=== PATIENT | female | born 1975 | race Two or more races ===

== ENCOUNTER 2017-07-28 02:58 | Inpatient (IN) | payer BC ==
[~2017-07-28 02:58] MED LIST: Buffered Lidocaine 0.9% SYRIN* 5 ML/SYR SYRINGE INTRADERM ONE
[2017-07-28] MEDS ORDERED: Ondansetron INJ* 2 MG/ML VIAL IV ONE ×2 (06:00)
[2017-07-28] MEDS ORDERED: Sodium Citrate/Citric Acid* 15 ML UDC PO ONE ×2 (06:00)
[2017-07-28] MEDS ORDERED: Famotidine IV* 10 MG/ML 2 ML (20 mg) IV ONE ×2 (06:00)
[2017-07-28] MEDS ORDERED: Acetaminophen TAB* 325 MG PO ONE ×2 (06:00)
[2017-07-28] MEDS ORDERED: ceFAZolin 2 GM PREMIX (*) 2 GM/50 ML BAG IVPB ONE (07:00)
[2017-07-28] MEDS ORDERED: fentaNYL* 50 MCG/ML 2 ML VIAL (100 MCG VIAL) ONE (07:15)
[2017-07-28] MEDS ORDERED: oxyCODONE TAB* 5 MG TAB PO PRN (07:45)
[2017-07-28] MEDS ORDERED: HYDROmorphone INJ* 1 MG/ML CARPUJECT SYRINGE IV PRN (07:45)
[2017-07-28] MEDS ORDERED: PROCHLORPERAZINE INJ 5 MG/ML 2 ML VIAL IV PRN (07:45)
[2017-07-28] MEDS ORDERED: fentaNYL* 50 MCG/ML 2 ML VIAL (100 MCG VIAL) IV PRN (07:45)
[2017-07-28] MEDS ORDERED: oxyCODONE/Acetamin 5/325 MG* TAB PO PRN ×2 (07:45→12:00)
[2017-07-28] MEDS ORDERED: diPHENhydraMINE IV* 50 MG/ML 1 ml VIAL (BENADRYL) IV PRN (07:45)
[2017-07-28] MEDS ORDERED: HYDROcodone/ACETAMIN 5-325 MG* 1 TAB PO PRN (07:45)
[2017-07-28] MEDS ORDERED: Nalbuphine* 20 MG/ML 1 ML VIAL IV PRN (07:45)
[2017-07-28] MEDS ORDERED: Ondansetron INJ* 2 MG/ML VIAL IV PRN (07:45)
[2017-07-28] MEDS ORDERED: DiMENhydriNATE IV* 50 MG/ML VIAL IV PUSH PRN (07:45)
[2017-07-28] MEDS ORDERED: Ketorolac INJ* 30 MG/ML 1 ML VIAL IV SCH (08:00)
[2017-07-28] MEDS ORDERED: Phenylephrine IV* 40 MCG/ML 10 ML SYRINGE ONE (08:35)
[2017-07-28] MEDS ORDERED: Glycerin ADULT SUPP PR PRN (10:17)
[2017-07-28] MEDS ORDERED: Acetaminophen TAB* 325 MG PO PRN (10:17)
[2017-07-28] MEDS ORDERED: Dibucaine 1% 28.35 GM TUBE PR PRN (10:17)
[2017-07-28] MEDS ORDERED: Witch Hazel PAD* JAR TOPICAL PRN (10:17)
[2017-07-28] MEDS ORDERED: Oxytocin in LR* 20 UNITS/1,000 ML BAG IVPB SCH (11:00)
[2017-07-28] MEDS: oxyCODONE/Acetamin 5/325 MG* TAB PO PRN ×2 (12:19→19:10)
[2017-07-28] MEDS: Simethicone TAB* 80 MG TAB.CHEW PO SCH ×3 (12:35→20:47)
--- NOTE | 2017-07-28 14:28 | PTEDU ---
Patient Name: NOAH SHAH NOAH SHAH selected video: Never Ever Shake a Baby to view on 07/28/2017 at 2:27:38 PM from [facility] [id number]
--- NOTE | 2017-07-28 14:38 | PTEDU ---
Patient Name: NOAH SHAH NOAH SHAH selected video: BBOB: Nurturing Your Gorgeous &Growing Baby by to view on 07/28/2017 at 2:37:40 PM [id number]
[2017-07-28] MEDS: Docusate CAP* 100 MG PO SCH ×2 (14:40→20:47)
[2017-07-28] MEDS: Ketorolac INJ* 30 MG/ML 1 ML VIAL IV SCH (16:55)
--- NOTE | 2017-07-28 20:08 | PTEDU ---
Patient Name: NOAH SHAH NAOH SHAH selected video: Follow Me Mum: The Wilson to Successful to view on 2016 at 8:08:18 PM from [id number]
[2017-07-28] MEDS: Famotidine TAB* 20 MG PO SCH (20:47)
--- NOTE | 2017-07-28 21:01 | OP ---
CC: Dr. Sriram Montalvo * DATE OF OPERATION: 07/28/17 - ROOM #[facility]-117 DATE OF : 77 SURGEON: Sarah Licea MD ISOTOPE TECHNICIAN: Dr. Sriram Montalvo. ANESTHESIOLOGIST: Dr. Lashon Nugent. ANESTHESIA: Spinal. PRE-OP DIAGNOSES: Intrauterine at 39-1/7th weeks, prior myomectomy. POST-OP DIAGNOSES: Intrauterine at 39-1/7th weeks, prior myomectomy, delivered. OPERATIVE PROCEDURE: Primary low-transverse section. ESTIMATED BLOOD LOSS: 600 cc. FLUIDS: 1500 cc of crystalloid. URINE OUTPUT: 200 cc of yellow urine. FINDINGS: Revealed a vertex male infant. Apgars 9 at 1 minute and 9 at 5 minutes. Nuchal cord x1. No meconium. Weight was 8 pounds 8 ounces. Placenta manually extracted intact, adherent to the right lateral aspect of the uterus. No evidence of accreta. Intact 3-vessel cord. Placenta, fibroid anteriorly within the myometrium approximately 4 cm size and a fibroid coming off the left frontal area approximately 5 cm size. Normal palpated tubes and ovaries. No evidence of adhesions. DESCRIPTION OF PROCEDURE: The patient was placed in dorsal lithotomy position. Abdomen was prepped and draped in a sterile standard fashion. Anesthesia was tested to appropriate level. The patient was identified with universal protocol for correct position, patient, and procedure. Incision was made with the scalpel 2 fingerbreadths above the pubic symphysis. This was carried down through to the fascia. Fascia was scored in the midline, extended laterally and superiorly using Godoy scissors, sharply and inferiorly with blunt and sharp dissection from the rectus muscle. The peritoneum was then entered bluntly. The peritoneal incision was extended bluntly. Bladder blade was inserted. Lower uterine segment was identified and lifted up with Allis. Incision was made, carried down through to the membranes. Clear fluid was noted. The incision was extended laterally and superiorly using bandage scissors. The infant was delivered vertex. Nuchal cord reduced. Anterior and posterior shoulder delivered. The cord was allowed to pulse for greater than 30 seconds and at which point, the cord was clamped, and the baby was handed off to awaiting cylinder machine operator, Dr. Wells. The baby was vigorous throughout and crying after head delivery. The placenta was then manually extracted and noted to be adherent to the right lateral aspect of the uterus, but did detach with manual extraction. The uterine cavity was explored, noted to be free of any membranes or placental tissue. The fibroids were palpated as described in the findings. The uterine incision was clamped with broad Allis and the incision itself was reapproximated in two layers, first layer running locked, second layer running imbricated for hemostasis. Colic gutters were lavaged and hemostasis was again reassured at the hysterotomy site. The peritoneum was then clamped with Divya. The fundus was then palpated, tubes and ovaries were palpated, noted to have a normal palpation with no evidence of adhesions. The peritoneum was then reapproximated using 3-0 Vicryl in a running fashion. Lavage was performed of the subfascial area. Hemostasis assured and the fascia itself was reapproximated using 0 Vicryl x2 in a running fashion. Subcu was lavaged, hemostasis assured with Bovie coagulation and a subcuticular camper stitch was placed using 3-0 Vicryl in an interrupted fashion x5. The skin was then reapproximated using a 4-0 Monocryl in a subcuticular fashion. All sponge , needle, instrument, and blade counts were correct at the case. The patient tolerated the procedure well and went to recovery room in stable condition. [id number]/[facility] #: [id number] PRIETO
[2017-07-29] MEDS: Ketorolac INJ* 30 MG/ML 1 ML VIAL IV SCH ×2 (00:21→00:30)
[2017-07-29] MEDS ORDERED: Ibuprofen TAB* 600 MG ONE ×2 (00:33→07:37)
[2017-07-29] MEDS: Ibuprofen TAB* 600 MG PO PRN ×4 (00:34→20:31)
[2017-07-29] MEDS: oxyCODONE/Acetamin 5/325 MG* TAB PO PRN ×3 (04:20→18:12)
[2017-07-29] MEDS: Levothyroxine TAB* 125 MCG TAB PO SCH (06:34)
[2017-07-29 08:05] LABS: ABS Basophils 0 10^3/ul (0-0.2); ABS Eosinophils 0.1 10^3/ul (0-0.6); ABS Lymphocytes 1.8 10^3/ul (1.0-4.8); ABS Monocytes 0.4 10^3/ul (0-0.8); ABS Neutrophils 8.8 10^3/ul (1.5-7.7); ABS Nucleated RBC 0 10^3/ul; Hematocrit 30 % (35-47); Hemoglobin 9.9 g/dl (12.0-16.0); Lymphocyte % 16.5 % (25-47); Mean Corpuscular HGB Conc 33 g/dl (31-36); Mean Corpuscular Hemoglobin 26 pg (27-31); Mean Corpuscular Volume 78 fL (80-97); Mean Platelet Volume 7 um3 (7.4-10.4); Nucleated Red Blood Cells % 0; Platelet Count 235 10^3/ul (150-450); Red Blood Count 3.82 10^6/ul (4.0-5.4); Red Cell Distribution Width 16 % (10.5-15); White Blood Count 11.2 10^3/ul (3.5-10.8)
[2017-07-29] MEDS: Famotidine TAB* 20 MG PO SCH ×2 (09:05→20:31)
[2017-07-29] MEDS: Simethicone TAB* 80 MG TAB.CHEW PO SCH ×4 (09:05→20:32)
[2017-07-29] MEDS: Ferrous Gluconate TAB* 324 MG TAB PO SCH ×2 (09:05→20:32)
[2017-07-29] MEDS: Docusate CAP* 100 MG PO SCH ×3 (09:05→20:32)
[2017-07-29] MEDS: PRENATAL DHA PO SCH (15:43)
[2017-07-30] MEDS: Levothyroxine TAB* 125 MCG TAB PO SCH (06:08)
[2017-07-30] MEDS: Ibuprofen TAB* 600 MG PO PRN ×3 (07:32→20:28)
[2017-07-30] MEDS: oxyCODONE/Acetamin 5/325 MG* TAB PO PRN ×2 (07:32→22:18)
[2017-07-30] MEDS: Simethicone TAB* 80 MG TAB.CHEW PO SCH ×4 (08:47→20:29)
[2017-07-30] MEDS: Famotidine TAB* 20 MG PO SCH ×2 (08:47→20:28)
[2017-07-30] MEDS: Docusate CAP* 100 MG PO SCH ×3 (08:47→20:29)
[2017-07-30] MEDS: Ferrous Gluconate TAB* 324 MG TAB PO SCH ×2 (08:47→20:29)
[2017-07-30] MEDS: PRENATAL DHA PO SCH (09:10)
[2017-07-31] MEDS: Ibuprofen TAB* 600 MG PO PRN ×2 (04:26→10:18)
[2017-07-31] MEDS: Levothyroxine TAB* 125 MCG TAB PO SCH (07:12)
[2017-07-31 08:05] VITALS: BP 136/76
[2017-07-31] MEDS: Famotidine TAB* 20 MG PO SCH (08:40)
[2017-07-31] MEDS: Docusate CAP* 100 MG PO SCH (08:41)
[2017-07-31] MEDS: Ferrous Gluconate TAB* 324 MG TAB PO SCH (08:41)
[2017-07-31] MEDS: Simethicone TAB* 80 MG TAB.CHEW PO SCH (08:41)
== END 2017-07-31 13:09 | disposition home or self-care (01) | DRG 540 ==
LOC: UNDOADMIN 02:58 → MCHOB 02:58
PROVIDERS: ADMIT Obstetrics & Gynecology; ATTEND Obstetrics & Gynecology
PROC: 4A1HXCZ Monitoring of Products of Conception, Cardiac Rate, External Approach (ICD-10-PCS; 2017-07-28)
PROC: 10D00Z1 Extraction of Products of Conception, Low, Open Approach (ICD-10-PCS; principal; 2017-07-28 07:45)
DX: O99.214 Obesity complicating childbirth (principal); E66.01 Morbid (severe) obesity due to excess calories; Z68.39 Body mass index [BMI] 39.0-39.9, adult; O34.29 Maternal care due to uterine scar from other previous surgery; Z90.49 Acquired absence of other specified parts of digestive tract; O69.81X0 Labor and delivery complicated by cord around neck, without compression, not applicable or unspecified; Z3A.39 39 weeks gestation of pregnancy; O34.13 Maternal care for benign tumor of corpus uteri, third trimester; D25.9 Leiomyoma of uterus, unspecified; O73.0 Retained placenta without hemorrhage; Z37.0 Single live birth; O99.824 Streptococcus B carrier state complicating childbirth; O90.81 Anemia of the puerperium; O99.284 Endocrine, nutritional and metabolic diseases complicating childbirth; E03.9 Hypothyroidism, unspecified
CPT/HCPCS: 36415; 85025; A9270-GY; J0690; J1885; J3010

== ENCOUNTER 2018-12-25 18:36 | Emergency (ER) | payer BC ==
--- NOTE | 2018-12-25 19:08 | ED ---
HPI Chest Pain - HPI Summary HPI Summary: Pt seen at 1850 in Subwaiting room after EKG performed. 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 Pt rates the pressure and SOB approximately 4-5, both relieved with rest. Pt has no hx asthma. No cardiac risk factors. Never smoked. No personal or family hx of blood clots. Pt also states she was worked up for genetic conditions that cause clotting, and tested negative for these also. Pt states the SOB is worse with exertion, and walking from the hospital parking lot caused severe SOB. Pt has no risk factors for clot such as immobility, malignancy, estrogen, long care ride or smoking. Pt states these symptoms feel somewhat similar to when she was receiving an intralipid infusion and had an allergic reaction with CP, SOB, however she cannot think of any medications that she has taken recently that might have caused an allergic reaction and she has not rash or hives. However, her throat also feels a little tight with the chest pressure. Pt has had no wheezing that she could feel or hear. +Fam hx asthma, DM, HTN , - History of Current Complaint Chief Complaint: EDChestPainROMI Time Seen by Provider: 12/25/18 19:04 Hx Obtained From: Patient Onset/Duration: Started Hours Ago, Atraumatic, Still Present Timing: Constant, Lasting Hours Initial Severity: Moderate Current Severity: Moderate Pain Intensity: 4 Pain Scale Used: 0-10 Numeric Chest Pain Location: Mid Sternal Chest Pain Radiates: No Character: Cough, Non-Productive, Dyspnea at Exertion, Dyspnea at Rest, Pressure /Squeezing Aggravating Factor(s): Nothing Alleviating Factor(s): Nothing Associated Signs and Symptoms: Positive: Chest Pain, Shortness of Breath, Cough - dry, Nonproductive Cough - Risk Factors Pulmonary Embolism Risk Factors: Negative TAD Risk Factors: Negative - Allergy/Home Medications Allergies/Adverse Reactions: Allergies Allergy/AdvReac Type Severity Reaction Status Date / Time fat emulsions Allergy See Comment Verified 12/25/18 18:40 [From Intralipid] PMH/Surg Hx/FS Hx/Imm Hx Endocrine/Hematology History: Reports: Hx Diabetes, Hx Anemia Cardiovascular History: Denies: Hx Congestive Heart Failure, Hx Hypertension, Other Cardiovascular Problems/Disorders Respiratory History: Reports: Hx Pleural Effusion Denies: Hx Asthma GI History: Reports: Hx Gall Bladder Disease - [facility] 2009 History: Reports: Hx Kidney Stones - long time ago Denies: Hx Renal Disease Sensory History: Reports: Hx Contacts or Glasses - glasses Denies: Hx Hearing Aid Opthamlomology History: Reports: Hx Contacts or Glasses - glasses - Cancer History Cancer Type, Location and Year: none - Surgical History Surgery Procedure, Year, and Place: LAP CHO[facility]STECTOMY-[facility], myomectomy December 2013 Hx Anesthesia Reactions: No Infectious Disease History: No Infectious Disease History: Denies: Hx Clostridium Difficile, Hx Hepatitis, Hx Human Immunodeficiency Virus (HIV), Hx of Known/Suspected MRSA, Hx Shingles, Hx Tuberculosis, History Other Infectious Disease, Traveled Outside the [place] in Last 30 Days - Family History Known Family History: Positive: Hypertension, Diabetes, Other - CAD, prostate CA , no hx clotting disorder - Social History Occupation: Employed Full-time Lives: With Family Alcohol Use: None Hx Substance Use: No Substance Use Type: Reports: None Hx Tobacco Use: No Smoking Status (MU): Never Smoked Tobacco Review of Systems Constitutional: Negative ENT: Negative Positive: Chest Pain Positive: Shortness Of Breath, Cough - dry Gastrointestinal: Negative Positive: no symptoms reported Musculoskeletal: Negative Skin: Negative Neurological: Negative Psychological: Normal All Other Systems Reviewed And Are Negative: Yes Physical Exam Triage Information Reviewed: Yes Vital Signs On Initial Exam: Initial Vitals Temp Pulse Resp BP Pulse Ox 98.3 F 113 20 166/110 100 12/25/18 18:37 12/25/18 18:37 12/25/18 18:37 12/25/18 18:37 12/25/18 18:37 Vital Signs Reviewed: Yes Appearance: Positive: Ill-Appearing - moderately, Pain Distress, Obese Skin: Positive: Warm, Skin Color Reflects Adequate Perfusion, Dry Head/Face: Positive: Normal Head/Face Inspection Eyes: Positive: EOMI, Conjunctiva Clear ENT: Positive: Normal ENT inspection, Hearing grossly normal, Pharynx normal, Uvula midline - no swelling Neck: Positive: Supple, Nontender, No Lymphadenopathy, Other: - thyroid nonpalp Respiratory/Lung Sounds: Positive: Decreased Breath Sounds - throughout, Other - dry cough multiple times during the exam, that even interrupts her talking. Cardiovascular: Positive: Normal, RRR, S1, S2 Abdomen Description: Positive: Nontender, Soft Bowel Sounds: Positive: Present Musculoskeletal: Positive: Strength/ROM Intact Neurological: Positive: Normal, Sensory/Motor Intact, Alert, Oriented to Person Place, Time, Facial Symmetry, Speech Normal Psychiatric: Positive: Affect/Mood Appropriate Diagnostics - Vital Signs Vital Signs Temp Pulse Resp BP Pulse Ox 12/25/18 18:37 98.3 F 113 20 166/110 100 - Laboratory Result Diagrams: 12/25/18 19:19 12/25/18 19:19 Lab Statement: Any lab studies that have been ordered have been reviewed, and results considered in the medical decision making process. - EKG 1842 Cardiac Rate: Tachycardia EKG Rhythm: Sinus Tachycardia ST Segment: Normal Ectopy: None EKG Comparison: No Significant Change - c/w 05/26/16 Summary of EKG Findings: ST with no acute changes, no S1Q3T3. Re-Evaluation - Re-Evaluation First Eval Re-Evaluation Time: 20:10 Change: Unchanged Comment: Pt still with chest pressure, and SOB with exertion. Awaiting CTA. 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 No wheezing, no fever. No hx asthma. No hx clotting disorder. No risk factors for blood clots. No risk factor for heart disease. Pt's primary presentation is most consistent with possible respiratory cause, rather than cardiac. Will obtain labs, including d-dimer. However will order the definitive test, the CTA chest with pt's persistent dry cough, and severe SOB at rest and with exertion, with no other obvious cause. Allergic reaction is another possibility however no easily identifiable allergen and no rash, no hives, no itching, no wheezing, only chest pressure and SOB. Pt agrees with the work up. Care is signed out to Dr. Acosta with labs, and CTA pending at change of shift. - Chest Pain Differential Diagnosis/HQI/PQRI: Acute UT, ACS, CHF, Chest Wall, GI Disease, Lower Respiratory Infection, Pulmonary Embolism - Diagnoses Provider Diagnoses: Dyspnea, Cough, Chest pressure Discharge - Sign-Out/Discharge Documenting (check all that apply): Sign-Out Patient Signing out patient TO: Norbert Acosta - 12/25/18 at 1900, pending labs and xray and CTA Patient Received Moderate/Deep Sedation with Procedure: No - Discharge Plan Condition: Stable Disposition: HOME Patient Education Materials: Dyspnea (ED) Referrals: Britni Rajan MD [Primary Care Provider] - 3 Days (if still having trouble) - Billing Disposition and Condition Condition: STABLE Disposition: Home
[2018-12-25 19:29] LABS: ABS Eosinophils 0.3 10^3/ul (0-0.6); ABS Lymphocytes 2.5 10^3/ul (1.0-4.8); ABS Monocytes 0.3 10^3/ul (0-0.8); ABS Neutrophils 5.9 10^3/ul (1.5-7.7); Eosinophil % 2.8 %; Hematocrit 38 % (35-47); Hemoglobin 12.3 g/dL (12.0-16.0); Mean Corpuscular HGB Conc 33 g/dL (31-36); Mean Corpuscular Hemoglobin 25 pg (27-31); Mean Corpuscular Volume 76 fL (80-97); Mean Platelet Volume 6.8 fL (7.4-10.4); Nucleated Red Blood Cells % 0.1; Platelet Count 375 10^3/uL (150-450); Red Blood Count 4.99 10^6 /uL (3.70-4.87); Red Cell Distribution Width 16 % (10.5-15); White Blood Count 9.1 10^3/uL (3.5-10.8)
[2018-12-25 19:38] LABS: Activated Partial Thrombo Time 32.7 seconds (26.0-36.3); INR 0.98 (0.82-1.09)
[2018-12-25 19:41] VITALS: BP 136/80
[2018-12-25 19:46] LABS: ALT 25 U/L (7-52); AST 18 U/L (13-39); Albumin 4.2 g/dL (3.2-5.2); Albumin/Globulin Ratio 1.2 (1-3); Alkaline Phosphatase 135 U/L (34-104); Anion Gap 8 mmol/L (2-11); BUN/Creatinine Ratio 15.3 (8-20); Blood Urea Nitrogen 11 mg/dL (6-24); CO2 Carbon Dioxide 27 mmol/L (22-32); Calcium 9.4 mg/dL (8.6-10.3); Chloride 103 mmol/L (101-111); EGFR African American 107.5 (>60); EGFR Non-African American 88.8 (>60); Globulin 3.5 g/dL (2-4); Glucose 174 mg/dL (70-100); Magnesium 1.9 mg/dL (1.9-2.7); Potassium 3.4 mmol/L (3.5-5.0); Sodium 138 mmol/L (135-145); Total Protein 7.7 g/dL (6.4-8.9)
[2018-12-25] MEDS ORDERED: Iodixanol* (CONTRAST) 320 MG/ML 100 ML SDV IV ONE (19:51)
[2018-12-25 19:54] LABS: HCG Pregnancy < 0.60 mIU/mL
[2018-12-25 20:00] LABS: TSH (Thyroid Stimulating Horm) 4.23 mcIU/mL (0.34-5.60)
--- NOTE | 2018-12-25 20:17 | ED ---
Progress - Progress Note Progress Note: Pt is a signout from Dr. Holguin on 12/25/18 pending CXR, CTA chest, and lab results. - Results/Orders Results/Orders: CTA Chest/Thorax No acute findings. Specifically no pulmonary embolism. ED physician has reviewed this report. Course/Dx - Course Course Of Treatment: Pt is a signout from Dr. Holguin on 12/25/18 pending CXR, CTA chest, and lab results. CTA Chest/Thorax shows: No acute findings. Specifically no pulmonary embolism. She has been stable while in the ED, and reports feeling better. She will be d/c'ed with dx of dyspnea and cough, and she is agreeable with this plan. - Diagnoses Provider Diagnoses: Dyspnea, Cough, Chest pressure Discharge - Sign-Out/Discharge Documenting (check all that apply): Patient Departure, Receiving Sign-Out Receiving patient FROM: Kaley Holguin Patient Received Moderate/Deep Sedation with Procedure: No - Discharge Plan Condition: Stable Disposition: HOME Patient Education Materials: Dyspnea (ED) Referrals: Britni Rajan MD [Primary Care Provider] - 3 Days (if still having trouble) - Billing Disposition and Condition Condition: STABLE Disposition: Home - Attestation Statements Document Initiated by Scribe: Yes Documenting Scribe: Michelle Cornejo Provider For Whom Sofia is Documenting (Include Credential): Norbert Acosta MD. Scribe Attestation: Michelle Romo, clayed for Norbert Acosta MD. on 12/29/18 at 0450. Scribe Documentation Reviewed: Yes Provider Attestation: The documentation as recorded by the Michelle donohue accurately reflects the service I personally performed and the decisions made by , Norbert Acosta MD. Status of Scribe Document: Viewed
== END 2018-12-25 21:37 | disposition home or self-care (01) ==
LOC: ED 18:36
DX: R06.00 Dyspnea, unspecified (principal); R05 Cough; R07.89 Other chest pain; E11.9 Type 2 diabetes mellitus without complications; D64.9 Anemia, unspecified; R00.0 Tachycardia, unspecified
CPT/HCPCS: 36415; 71275; 80053; 83605; 83735; 83880; 84443; 84484; 84702; 85025; 85379; 85610; 85730; 93005; 99282; Q9967

== ENCOUNTER 2018-12-31 14:19 | Emergency (ER) | payer BC ==
--- NOTE | 2018-12-31 14:31 | ED ---
Shortness of Breath - HPI Summary HPI Summary: 43 year old F presenting to [facility] with a chief complaint of worsening shortness of breath since 1100 today. Symptoms aggravated by exertion, movement, sitting upright. Symptoms alleviated by nothing. Patient reports dry cough. Patient denies rash, fever, chest pain, rhinorrhea. Patient denies known exposure to allergens. She does not take any medications. This morning, patient ate biscuit with almonds, which she has eaten before. Patient was seen in ED on 12/25/18, where her Chest CTA was negative. While in ED, patient's SOB improved so she was discharged from ED on 12/25/18. Vital signs while in room: HR 91 bpm, BP 131/97, O2 sat 100% Home Medications Medication Instructions Recorded Confirmed Type NK [No Home Medications Reported] 12/31/18 12/31/18 History - History of Current Complaint Chief Complaint: EDShortnessOfBreath Hx Obtained From: Patient Onset/Duration: Lasting Hours - 11:00 today, Still Present Timing: Constant Aggrevating Factors: Other - exertion, movement, sitting upright Alleviating Factors: Nothing Associated Signs & Symptoms: Negative - rash, fever, chest pain, runny nose., Cough (Nonproductive) - Allergy/Home Medications Allergies/Adverse Reactions: Allergies Allergy/AdvReac Type Severity Reaction Status Date / Time fat emulsions Allergy See Comment Verified 12/31/18 15:02 [From Intralipid] PMH/Surg Hx/FS Hx/Imm Hx Previously Healthy: No Endocrine/Hematology History: Reports: Hx Diabetes, Hx Anemia Cardiovascular History: Denies: Hx Congestive Heart Failure, Hx Hypertension, Other Cardiovascular Problems/Disorders Respiratory History: Reports: Hx Pleural Effusion Denies: Hx Asthma GI History: Reports: Hx Gall Bladder Disease - [facility] 2009 History: Reports: Hx Kidney Stones - long time ago Denies: Hx Renal Disease Sensory History: Reports: Hx Contacts or Glasses - glasses Denies: Hx Hearing Aid Opthamlomology History: Reports: Hx Contacts or Glasses - glasses - Cancer History Cancer Type, Location and Year: none - Surgical History Surgery Procedure, Year, and Place[place] [place] Hx Anesthesia Reactions: No Infectious Disease History: Denies: Hx Clostridium Difficile, Hx Hepatitis, Hx Human Immunodeficiency Virus (HIV), Hx of Known/Suspected MRSA, Hx Shingles, Hx Tuberculosis, History Other Infectious Disease - Family History Known Family History: Positive: Hypertension, Diabetes, Other - CAD, prostate CA , no hx clotting disorder - Social History Alcohol Use: None Hx Substance Use: No Substance Use Type: Reports: None Hx Tobacco Use: No Smoking Status (MU): Never Smoked Tobacco Review of Systems Negative: Fever ENT: Negative - rhinorrhea Negative: Chest Pain Positive: Shortness Of Breath, Cough Negative: Rash All Other Systems Reviewed And Are Negative: Yes Physical Exam - Summary Physical Exam Summary: Appearance: Ill-appearing, no pain distress, well-nourished Skin: Warm, color reflects adequate perfusion, dry Head: Normal Head/Face inspection, atraumatic Eyes: Conjunctiva clear ENT: Normal inspection Neck: Supple, no nodes, no JVD Respiratory: Lungs clear, decreased breath sounds, no respiratory distress, frequent dry cough Cardio: RRR, No murmur, pulses normal, brisk capillary refill Abdomen: Soft, nontender Bowel sounds: Present Musculoskeletal: Strength Intact/ROM intact, no calf tenderness, no edema. Psychological: Normal Neuro: Alert, muscle tone normal, no focal deficit Triage Information Reviewed: Yes Vital Signs Reviewed: Yes Diagnostics - Laboratory Result Diagrams: 12/31/18 14:52 12/31/18 14:52 Lab Statement: Any lab studies that have been ordered have been reviewed, and results considered in the medical decision making process. - Radiology CXR Radiology Interpretation Completed By: Radiologist Summary of Radiographic Findings: NO ACTIVE CARDIOPULMONARY DISEASE. ED physician has reviewed this report. - EKG 1419 Cardiac Rate: NL EKG Rhythm: Sinus Rhythm - [address] Segment: Non-Specific Ectopy: None EKG Comparison: No Significant Change - From 12/25/18 Summary of EKG Findings: Low voltage. Nml AV/IV CT, nml QTc, and nml axis. No acute changes. ED MD has reviewed and interpreted this EKG. - Additional Comments Diagnostic Additional Comments: Transthoracic Echocardiogram, per produce service team member, shows 1. Left ventricle: The cavity size is normal. Wall thickness is mildly increased. The wall thickness has increased since the study of April 2014. Systolic function is vigorous. The estimated ejection fraction is 65-70%. the study of April 2014. Doppler parameters are consistent with abnormal left ventricular relaxation (grade 1 diastolic dysfunction). 2. Right ventricle: The cavity size is mildly dilated. Wall thickness is mildly increased. The wall thickness has increased in comparison with the study of April 2014. Systolic function is mildly reduced. Overall RV function is worse in comparison with the study of April 2014. 3. Left atrium: The atrium is mildly dilated. The left atrium has increased in size since the study of April 2014. 4. Pericardium, extracardiac: A prominent pericardial fat pad is present. A possible, trivial pericardial effusion is identified circumferential to the heart. There is no evidence of hemodynamic compromise. The pericardial effusion has not changed since the study of April 2014. 5. Pulmonary arteries: Systolic pressure can not be accurately estimated. ED physician has reviewed this report. Re-Evaluation - Re-Evaluation First Eval Re-Evaluation Time: 14:32 Change: Unchanged Comment: Dr. Agarwal is examining the patient. Second Eval Re-Evaluation Time: 14:51 Change: Unchanged Comment: Patient is lying on stretcher. Domi, phlebotomy, is drawing blood. Dr. Agarwal is at bedside. Third Eval Re-Evaluation Time: 15:49 Change: Unchanged Comment: Patient is in CXR Fourth Eval Re-Evaluation Time: 16:51 Change: Improved Comment: Patient was given a copy of her scans. Her SOB has improved but she still prefers to sit up. Fifth Eval Re-Evaluation Time: 17:37 Comment: Patient is up and walking Course/Dx - Course Course Of Treatment: Patient medications reviewed this visit. Nurses notes reviewed. Allergies noted. High blood pressure noted. Bloodwork was obtained. Bloodwork was unremarkable. Echocardiogram obtained. EKG showed no change compared to 12/25/18. CXR showed NO ACTIVE CARDIOPULMONARY DISEASE. Dr. Agarwal agrees to consult at 1425. Spoke with Dr. Israel, hospitalist, at 1512, who agrees to admit patient. Spoke with Dr. Agarwal at 1713 will come down to reevaluate patient. Spoke with Dr. Agarwal at 1535 who said that patient can be discharged home. Patient will be discharged home with prescription for some tessalon perles and some Robitussin with codeine that patient was instruted to use as needed. Patient was told to follow up from Dr. Rajan, primary care provider, as soon as possible. She was told that Dr. Agarwal recommended a trial of a PPI medication which patient has at home. Patient was given a copy of her scans. Patient was instructed to return to ED for new or worsening symptoms. Patient understands and is agreeable to discharge plan. - Diagnoses Provider Diagnoses: Cough, Dyspnea - Physician Notifications Discussed Care of Patient With: Roseann Agarwal Time Discussed With Above Provider: 14:25 Instructed by Provider To: Other - Dr. Agarwal agrees to consult. Spoke with Dr. Israel, hospitalist, at 1512, who agrees to admit patient. Spoke with Dr. Agarwal at 1713 will come down to reevaluate patient. Spoke with Dr. Agarwal at 1535 who said that patient can be discharged home. Discharge - Sign-Out/Discharge Documenting (check all that apply): Patient Departure - Discharge Patient Received Moderate/Deep Sedation with Procedure: No - Discharge Plan Condition: Stable Disposition: HOME Prescriptions: Benzonatate CAP* [Tessalon 100 MG CAP*] 100 mg PO TID #30 cap guaiFENesin/CODIEN 100MG-10MG* [Robitussin AC 100Mg-10Mg*] 10 ml PO Q4H PRN # 300 ml MDD 60ml PRN Reason: Cough Patient Education Materials: Acute Cough (ED), Shortness of Breath (ED) Referrals: Britni Rajan MD [Primary Care Provider] - As Soon As Possible Additional Instructions: We have given you a copy of your studies done today. We did not find a definite cause for your symptoms. But Dr. Agarwal recommends a trial of a PPI medication which you have at home. Dr. Holguin also has prescribed some tessalon perles and some Robitussin with codeine that you may use as needed. Return to the emergency department for new or worsening symptoms. - Attestation Statements Document Initiated by Scribe: Yes Documenting Scribe: Denise Gant Provider For Whom Scribe is Documenting (Include Credential): Kaley Holguin MD Scribe Attestation: Denise Romo, scribed for Kaley Holguin MD on 12/31/18 at 9926.
[2018-12-31] MEDS ORDERED: Famotidine IV* 10 MG/ML 2 ML (20 mg) ONE (14:52)
[2018-12-31 15:29] LABS: Activated Partial Thrombo Time 36.7 seconds (26.0-38.0); INR 0.98 (0.82-1.09)
[2018-12-31 15:36] LABS: CKMB ng/mL 1.2 ng/mL (0.6-6.3)
[2018-12-31 15:39] LABS: ALT 31 U/L (7-52); AST 24 U/L (13-39); Albumin 4.3 g/dL (3.2-5.2); Albumin/Globulin Ratio 1.2 (1-3); Alkaline Phosphatase 125 U/L (34-104); Anion Gap 11 mmol/L (2-11); BUN/Creatinine Ratio 17.7 (8-20); Blood Urea Nitrogen 17 mg/dL (6-24); C Reactive Protein 15.17 mg/L (<8.01); CO2 Carbon Dioxide 25 mmol/L (22-32); Calcium 10.2 mg/dL (8.6-10.3); Chloride 100 mmol/L (101-111); Creatine Kinase 93 U/L (10-223); EGFR African American 77.1 (>60); EGFR Non-African American 63.7 (>60); Globulin 3.6 g/dL (2-4); Glucose 93 mg/dL (70-100); HCG Pregnancy < 0.60 mIU/mL; Potassium 3.7 mmol/L (3.5-5.0); Sodium 136 mmol/L (135-145); Total Protein 7.9 g/dL (6.4-8.9)
[2018-12-31 15:49] LABS: ABS Basophils 0.1 10^3/ul (0-0.2); ABS Eosinophils 0.2 10^3/ul (0-0.6); ABS Lymphocytes 2.6 10^3/ul (1.0-4.8); ABS Monocytes 0.5 10^3/ul (0-0.8); ABS Neutrophils 6.2 10^3/ul (1.5-7.7); Eosinophil % 1.7 %; Hematocrit 37 % (35-47); Hemoglobin 12.2 g/dL (12.0-16.0); Mean Corpuscular HGB Conc 33 g/dL (31-36); Mean Corpuscular Hemoglobin 25 pg (27-31); Mean Corpuscular Volume 74 fL (80-97); Mean Platelet Volume 6.9 fL (7.4-10.4); Platelet Count 374 10^3/uL (150-450); Red Blood Count 4.98 10^6 /uL (3.70-4.87); Red Cell Distribution Width 15 % (10.5-15); White Blood Count 9.5 10^3/uL (3.5-10.8)
--- NOTE | 2018-12-31 16:42 | ECHO ---
*[facility]* [place] [address] Fax #: [phone] Transthoracic Echocardiogram Patient: Olson, Height: 67 in / Griselda Mendez 170.2 cm : 1975 Weight: 307 lb / Study Date: 12/31/2018 139.5 kg Age: 43 BP: 131 / 97 Gender: F BMI/BSA: 48.2 HR: 90 bpm kg/m^2 / 2.65 m^2 *Suit Attendant: * Yary Hewitt [facility] *Referring Physician: * Kaley HolguinReading Physician: * Jhonatan Clayton MD Indications: SOB. History: Risk factors: Diabetes mellitus. Obese. Pleural effusion. Conclusions Summary: 1. Left ventricle: The cavity size is normal. Wall thickness is mildly increased. The wall thickness has increased since the study of April 2014. Systolic function is vigorous. The estimated ejection fraction is 65-70%. the study of April 2014. Doppler parameters are consistent with abnormal left ventricular relaxation (grade 1 diastolic dysfunction). 2. Right ventricle: The cavity size is mildly dilated. Wall thickness is mildly increased. The wall thickness has increased in comparison with the study of April 2014. Systolic function is mildly reduced. Overall RV function is worse in comparison with the study of April 2014. 3. Left atrium: The atrium is mildly dilated. The left atrium has increased in size since the study of April 2014. 4. Pericardium, extracardiac: A prominent pericardial fat pad is present. A possible, trivial pericardial effusion is identified circumferential to the heart. There is no evidence of hemodynamic compromise. The pericardial effusion has not changed since the study of April 2014. 5. Pulmonary arteries: Systolic pressure can not be accurately estimated. Study data: Transthoracic echocardiogram. Procedure: Transthoracic echocardiography was performed. Image quality was poor. The study was technically limited due to poor acoustic window availability and body habitus. Patient refused echocardiogram enhancement agent Definity due to possible allergy. Complete 2D, spectral Doppler, and color flow Doppler. Location: Emergency department. Patient status: Inpatient. Patient room number: ED-19. The previous study was not available, so comparison is made to the report of April 2014. Rhythm: Normal sinus rhythm. Findings Left ventricle: The cavity size is normal. Wall thickness is mildly increased. The wall thickness has increased since the study of April 2014. Hypertrophy has increased from the study of April 2014. Systolic function is vigorous. The estimated ejection fraction is 65-70%. the study of April 2014. Wall motion is normal; there are no regional wall motion abnormalities. Doppler parameters are consistent with abnormal left ventricular relaxation (grade 1 diastolic dysfunction). Diastolic function abnormalities have appeared since the study of April 2014. Right ventricle: Not well visualized. The cavity size is mildly dilated. Wall thickness is mildly increased. The wall thickness has increased in comparison with the study of April 2014. Systolic function is mildly reduced. Overall RV function is worse in comparison with the study of April 2014. Left atrium: The atrium is mildly dilated. The left atrium has increased in size since the study of April 2014. Right atrium: The atrium is normal in size. Mitral valve: The annulus is mildly calcified. The leaflets are normal thickness. There is no evidence of stenosis. There is trace regurgitation. Aortic valve: Not well visualized. The valve is trileaflet. The leaflets are normal thickness. There is no evidence of stenosis. There is no significant regurgitation. Tricuspid valve: The leaflets are normal thickness. There is no evidence of stenosis. There is physiologic regurgitation. Pulmonic valve: Not well visualized. Aorta: Ascending aorta: The ascending aorta is appears normal. Aortic arch: The aortic arch is appears normal. The aortic root is not dilated. Pericardium: A prominent pericardial fat pad is present. A possible, trivial pericardial effusion is identified circumferential to the heart. There is no evidence of hemodynamic compromise. The pericardial effusion has not changed since the study of April 2014. Pulmonary arteries: The main pulmonary artery is normal-sized. Systolic pressure can not be accurately estimated. Systemic veins: Inferior vena cava: The respirophasic diameter changes are blunted (< 50%). Measurements Left ventricle Value Ref Right atrium continued Value Ref ALLA, LAX 3.8 cm 3.8 - 5.2 ML dim, ES, A4C (H) 5.1 cm 2.6 - ESD, LAX 2.4 cm 2.2 - 3.5 4.4 FS, LAX 38 % 27 - 45 SI dim, ES, A4C (H) 6.2 cm 3.4 - PW, ED, LAX (H) 1.2 cm 0.6 - 0.9 5.3 FS 38 % 27 - 45 SI dim/bsa, ES, 2.3 cm/m^2 1.9 - PW, ED (H) 1.2 cm 0.6 - 0.9 A4C 3.1 E', lat juan alberto, TDI (L) 9.5 cm/sec >=10.0 Estimated RAP 8 mm Hg - ------- E/e', lat juan alberto, 8 TDI Aortic valve Value Ref E', med juan alberto, TDI 11.4 cm/sec >=7.0 Juan Alberto diam, ED 1.9 cm - ------- E/e', med juan alberto, 6 Peak v, S 1.37 m/sec ---- ---- TDI VTI, S 26.9 cm -------- E', avg, TDI 10.5 cm/sec Mean grad, S 3.0 mm Hg ---- ---- E/e', avg, TDI 7 <=14 Peak grad, S 8.0 mm Hg - ------- LVOT/AV, VTI ratio 0.67 -------- LVOT Value Ref Peak chioma, S 1.09 m/sec Mitral valve Value Ref VTI, S 18.0 cm Peak E 0.72 m/sec -------- Mean grad, S 2 mm Hg Peak A 0.59 m/sec -------- Decel time 194 ms -------- Ventricular septum Value Ref Peak grad, D 2.1 mm Hg -------- IVS, ED (H) 1.1 cm 0.6 - 0.9 Peak E/A ratio 1.2 -------- Right ventricle Value Ref Pulmonic valve Value Ref AW thickness, ED 0.4 cm 0.1 - 0.5 Peak v, S 1.16 m/sec -------- ALLA, LAX 3.2 cm Peak grad, S 5.0 mm Hg -------- ALLA minor ax, (H) 4.6 cm 1.9 - 3.5 A4C mid Aortic root Value Ref Root diam 3.0 cm <4.6 Left atrium Value Ref AP dim, ES 3.10 cm 2.70 - Ascending aorta Value Ref 3.80 AAo AP diam, S 2.8 cm -------- ML dim, A4C 4.6 cm SI dim, A4C 6.1 cm Decending aorta Value Ref Vol/bsa, ES, 1-p 16 ml/m^2 11 - 40 Alexander peak chioma 1.05 m/sec -------- A4C Vol/bsa, ES, A/L 20 ml/m^2 16 - 34 Inferior vena cava Value Ref Diam 2.1 cm -------- Right atrium Value Ref SI dim, ES (H) 6.2 cm 3.4 - 5.3 Legend: (L) and (H) estefania values outside specified reference range. Prepared and electronically signed by Jhonatan Clayton MD 12/31/2018 16:41
[2018-12-31 18:06] VITALS: BP 134/108
== END 2018-12-31 18:06 | disposition home or self-care (01) ==
LOC: ED 14:19
DX: R06.00 Dyspnea, unspecified (principal); R05 Cough; R06.02 Shortness of breath; E11.9 Type 2 diabetes mellitus without complications; Z87.442 Personal history of urinary calculi
CPT/HCPCS: 36415; 71046; 80053; 82550; 82553; 83605; 83880; 84484; 84702; 85025; 85379; 85610; 85730; 86140; 93005; 93306; 99283

== ENCOUNTER 2019-01-02 10:02 | Emergency (ER) | payer BC ==
--- NOTE | 2019-01-01 14:45 | CONS ---
PULMONARY CONSULTATION REPORT: DATE OF CONSULT: 12/31/18 CONSULTATION REQUESTED BY: Kaley Holguin MD REASON FOR CONSULTATION: Evaluation of shortness of breath. 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 on the day of presentation. She was of normal self other than having dry cough and tickle in the back of the throat. She had difficulty getting enough air and felt restricted in her chest, worsened with exertion, movement or lying down. Shortness of breath persisted even at rest. She was brought into the ED for further evaluation. The patient had similar symptom a few days back, was seen in ED on 12/25/18. She had essentially negative workup and was discharged from the ED. The patient reports no change in diet recently. She did not feel flushed. Denied any rash. The last episode happened while she was sleeping and she woke up from it. Denies fevers, chills, cold-like symptoms. Cough is essentially nonproductive. The patient was noted to have slight tachycardia with heart rate of 91 beats per minute, blood pressure was 131/97, O2 sat was 100% on room air. She was not using accessory muscles of respiration. PAST MEDICAL HISTORY: 1. Ovarian hyperstimulation syndrome. 2. History of kidney stones. 3. History of gestational diabetes. 4. History of low thyroid during . 5. History of mild anemia. 6. History of pleural effusion on the right side secondary to ovarian hyperstimulation syndrome. 7. History of gallstone, status post cholecystectomy in 2009. 8. History of myomectomy in December of 2013. FAMILY HISTORY: Hypertension, diabetes, coronary artery disease, prostate CA. SOCIAL HISTORY: No alcohol or drug abuse. The patient is a nonsmoker. She is a physician at [employer] [place] REVIEW OF SYSTEMS: All 14 systems reviewed and as per HPI. PHYSICAL EXAM: Obese body habitus, in mild distress upon presentation to the ED ; however, not using any accessory muscles. The patient appeared uncomfortable. HEENT: Pupils equal, reactive to light. Mucous membranes moist. Mallampati class 3 airway. Neck: Supple. Possible thyroid swelling. Respiratory: Good air entry bilaterally. No crackles, wheezes, or stridor. Cardiovascular: S1, S2 present, regular. No murmurs, gallops, or rubs. Abdomen: Soft, nontender, nondistended. Bowel sounds present. Musculoskeletal : Normal range of motion. No edema. Neuro: Alert, awake, and oriented x3. No focal deficits. Skin: No rash or bruises. DIAGNOSTIC STUDIES/LAB DATA: Showed WBC count of 9.5, hemoglobin 12.2, hematocrit 37, platelet count of 374, no evidence of left shift. D-dimer was less than 200. Sodium 136, potassium 3.7, chloride 100, bicarb 25. BUN 17, creatinine 0.96. Lactic acid within normal limits. Alk phos mildly elevated at 125. CRP is slightly elevated at 15. BNP within normal limits. test was negative. BNP recently tested was negative. Chest x-ray was personally reviewed - no obvious airspace opacities. No evidence of hyperinflation. CTA from 12/25/18, was personally reviewed by me - no evidence of filling defects in pulmonary arteries, no parenchymal abnormalities noted. Echocardiogram showed evidence of normal ejection fraction with mildly increased wall thickness, which is slightly increased since April of 2014, evidence of mild diastolic dysfunction. Also, with evidence of increased wall thickness in the right ventricle. Systolic function is mildly reduced and overall RV function is worse compared to 2014. Prominent pericardial fat with trivial pericardial effusion. These noted with no change comparison to prior echo. 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 Further investigations did not reveal any obvious pathology. Unclear symptoms of shortness of breath. Concern with possible gastroesophageal reflux disease even though she has not experienced any significant noticeable symptoms. Anaphylaxis is in the differential; however, no stridor or other findings consistent with that were noted. Evidence of diastolic dysfunction on echocardiogram and slightly thickened ventricles compared to prior echo from 2013; however, symptoms were not happening when she was exerting, unclear if cardiac etiology is to be considered. Troponins were within normal limits. One of the episodes happened and woke her up from sleep, so less likely to be from coronary blockage. Will need, however, further evaluation for possible coronary artery disease if her symptoms continue. Above recommendations were discussed with Dr. Kaley Holguin and with Dr. Min. Thank you for allowing me to participate in the care of the patient. [id number]/[facility] #: [id number] [facility]
--- NOTE | 2019-01-02 10:13 | ED ---
Shortness of Breath - HPI Summary HPI Summary: This patient is a 43 year old F presenting to [facility] with a chief complaint of intermittent SOB and chest tightness since 12/25/18 worsening today with throat tightness. Patient has had two previous workups for similar symptoms with multiple bloodwork, Chest CTA, and Echo, which were all normal. Since 12/25/18 patient has had a dry cough with intermittent SOB; she was given omeprazole as reflux was the suspected cause of her symptoms. Her symptoms improved temporarily, but returned on 12/31/18 that has been unresolved with Robitussim with Codeine. Today she feels like she cannot get a deep breath and feels tightness in her throat. She denies wheezing and difficulty swallowing. Denies new medications other than the previously mentioned. - History of Current Complaint Chief Complaint: EDShortnessOfBreath Hx Obtained From: Patient Onset/Duration: Lasting Weeks Alleviating Factors: Nothing Associated Signs & Symptoms: Cough (Nonproductive) Related History: Similar Episode - Allergy/Home Medications Allergies/Adverse Reactions: Allergies Allergy/AdvReac Type Severity Reaction Status Date / Time fat emulsions Allergy See Comment Verified 01/02/19 10:22 [From Intralipid] PMH/Surg Hx/FS Hx/Imm Hx Endocrine/Hematology History: Reports: Hx Diabetes, Hx Anemia Cardiovascular History: Denies: Hx Congestive Heart Failure, Hx Hypertension, Other Cardiovascular Problems/Disorders Respiratory History: Reports: Hx Pleural Effusion Denies: Hx Asthma GI History: Reports: Hx Gall Bladder Disease - [facility] 2009 History: Reports: Hx Kidney Stones - long time ago Denies: Hx Renal Disease Sensory History: Reports: Hx Contacts or Glasses - glasses Denies: Hx Hearing Aid Opthamlomology History: Reports: Hx Contacts or Glasses - glasses - Cancer History Cancer Type, Location and Year: none - Surgical History Surgery Procedure, Year, and Place: LAP CHOLECYSTECTOMY-[facility] [place], myomectomy December 2013 Hx Anesthesia Reactions: No Infectious Disease History: No Infectious Disease History: Denies: Hx Clostridium Difficile, Hx Hepatitis, Hx Human Immunodeficiency Virus (HIV), Hx of Known/Suspected MRSA, Hx Shingles, Hx Tuberculosis, History Other Infectious Disease, Traveled Outside the [place] in Last 30 Days - Family History Known Family History: Positive: Hypertension, Diabetes, Other - CAD, prostate CA , no hx clotting disorder - Social History Alcohol Use: None Hx Substance Use: No Substance Use Type: Reports: None Hx Tobacco Use: No Smoking Status (MU): Never Smoked Tobacco Review of Systems Positive: Other - throat tightness Positive: Shortness Of Breath, Cough All Other Systems Reviewed And Are Negative: Yes Physical Exam - Summary Physical Exam Summary: VITAL SIGNS: Reviewed. GENERAL: Patient is an obese female who is lying comfortable in the stretcher. Patient is not in any acute respiratory distress. HEAD AND FACE: No signs of trauma. No ecchymosis, hematomas or skull depressions. No sinus tenderness. EYES: PERRLA, EOMI x 2, No injected conjunctiva, no nystagmus. EARS: Hearing grossly intact. Ear canals and tympanic membranes are within normal limits. MOUTH: Oropharynx within normal limits. NECK: Supple, trachea is midline, no adenopathy, no JVD, no carotid bruit, no c- spine tenderness, neck with full ROM. CHEST: Symmetric, no tenderness at palpation LUNGS: Clear to auscultation bilaterally. No wheezing or crackles. CVS: Regular rate and rhythm, S1 and S2 present, no murmurs or gallops appreciated. ABDOMEN: Soft, non-tender. No signs of distention. No rebound no guarding, and no masses palpated. Bowel sounds are normal. EXTREMITIES: FROM in all major joints, no edema, no cyanosis or clubbing. NEURO: Alert and oriented x 3. No acute neurological deficits. Speech is normal and follows commands. SKIN: Dry and warm. Triage Information Reviewed: Yes Vital Signs On Initial Exam: Initial Vitals Temp Pulse Resp BP Pulse Ox 97.8 F 86 24 138/101 96 01/02/19 10:03 01/02/19 10:03 01/02/19 10:03 01/02/19 10:03 01/02/19 10:03 Vital Signs Reviewed: Yes Diagnostics - Vital Signs Vital Signs Temp Pulse Resp BP Pulse Ox 01/02/19 10:03 97.8 F 86 24 138/101 96 - Laboratory Result Diagrams: 01/02/19 10:48 01/02/19 10:48 Lab Statement: Any lab studies that have been ordered have been reviewed, and results considered in the medical decision making process. - Radiology CXR Radiology Interpretation Completed By: Radiologist Summary of Radiographic Findings: No radiographic evidence of acute cardiopulmonary disease. ED Physician has reviewed this report. - CT Neck CT CT Interpretation Completed By: Radiologist Summary of CT Findings: 1. Normal soft tissue CT of the neck. 2. Mild degenerative disc disease of the lower cervical and upper thoracic spine. ED Physician has reviewed this report. - EKG 1021 Cardiac Rate: NL - 84 BPM EKG Rhythm: Sinus Rhythm EKG Comparison: No Significant Change - 12/31/18 Summary of EKG Findings: No ST elevations. nml axis. Re-Evaluation - Re-Evaluation 1 Re-Evaluation Time: 13:10 Course/Dx - Course Course Of Treatment: This patient is a 43 year old F presenting to [facility] with a chief complaint of intermittent SOB and chest tightness since 12/25/18 worsening today with throat tightness. Patient has had two previous workups for similar symptoms with multiple bloodwork, Chest CTA, and Echo, which were all normal. Since 12/25/18 patient has had a dry cough with intermittent SOB; she was given omeprazole as reflux was the suspected cause of her symptoms. Her symptoms improved temporarily, but returned on 12/31/18 that has been resolved with Robitussin with Codeine. Today she feels like she cannot get a deep breath and feels tightness in her throat. She denies wheezing and difficulty swallowing. Denies new medications other than the previously mentioned. Past Medical History for: 1- Ovarian hyperstimulation syndrome. 2- Kidney stones. 3- Gestational diabetes. 4- Low thyroid 20 . 5- Mild anemia. 6- Pleural effusion secondary to ovarian hyperstimulation syndrome. 7_ Gallstones status post cholecystectomy 2009. 8- Myomectomy in December 2013. Patient reports that shes been having multiple episodes of shortness of breath. This dry cough. Today she feels like she is having something obstructing in the left side of the neck. Patient had a CTA of the chest on 12/25/18: which shows no acute findings. And no pulmonary embolism. Echocardiogram done on 12/31/18: Normal echocardiogram. Blood work without any significant abnormality except for sodium 134, chloride 97, anion gap is 12, alkaline phosphatase is 129 and CRP is 21.9. I discussed the case with Dr. Lopez ENT and he recommends a neck CT with IV contrast. Neck CT impression: Normal soft tissue CT of the neck. Mind and degenerative disc disease of the lower cervical and upper thoracic spine. I discussed the case with Dr. Lopez who recommends an scope as outpatient. At this time I also discussed the case with Dr. Rausch from pulmonology who recommends only to follow up as an outpatient. I discussed my physical exam findings, test results with the patient and I will order an albuterol pump, Flonase and Maria Ines to see if the symptoms improved. The patient understands and agrees. At this time she was advised to return to the emergency department if the symptoms worsen. She also understands and agrees. - Diagnoses Provider Diagnoses: Dyspnea, Cough - Physician Notifications Discussed Care of Patient With: Wilberto Lopez - ENT Time Discussed With Above Provider: 10:45 Instructed by Provider To: Other - suggests CT Neck with contrast Discharge - Sign-Out/Discharge Documenting (check all that apply): Patient Departure - discharge Patient Received Moderate/Deep Sedation with Procedure: No - Discharge Plan Condition: Stable Disposition: HOME Prescriptions: Fexofenadine (NF) [Maria Ines 180 (NF)] 180 mg PO DAILY #30 tab Fluticasone NASAL SPRAY 50MCG* [Flonase NASAL SPRAY 50MCG*] 2 spray BOTH NARES DAILY #1 btl Patient Education Materials: Chronic Cough (ED), Dyspnea (ED) Referrals: Britni Rajan MD [Primary Care Provider] - 2 Days Additional Instructions: RETURN TO THE EMERGENCY DEPARTMENT FOR CHANGING OR WORSENING SYMPTOMS. - Billing Disposition and Condition Condition: STABLE Disposition: Home - Attestation Statements Document Initiated by Sofia: Yes Documenting Scribe: Judy Simmons Provider For Whom Sofia is Documenting (Include Credential): Indra Whyte MD Scribe Attestation: I, Judy Simmons, scribed for Indra Whyte MD on 01/02/19 at 1517. Scribe Documentation Reviewed: Yes Provider Attestation: The documentation as recorded by the Judy donohue accurately reflects the service I personally performed and the decisions made by me, Indra Whyte MD Status of Scribe Document: Viewed
[2019-01-02 11:19] LABS: ABS Eosinophils 0.2 10^3/ul (0-0.6); ABS Lymphocytes 2.2 10^3/ul (1.0-4.8); ABS Monocytes 0.3 10^3/ul (0-0.8); ABS Neutrophils 6.3 10^3/ul (1.5-7.7); Eosinophil % 1.9 %; Hematocrit 38 % (35-47); Hemoglobin 12.5 g/dL (12.0-16.0); Lymphocyte % 23.8 %; Mean Corpuscular HGB Conc 33 g/dL (31-36); Mean Corpuscular Hemoglobin 25 pg (27-31); Mean Corpuscular Volume 75 fL (80-97); Mean Platelet Volume 7.1 fL (7.4-10.4); Platelet Count 353 10^3/uL (150-450); Red Blood Count 5.11 10^6 /uL (3.70-4.87); Red Cell Distribution Width 16 % (10.5-15); White Blood Count 9.1 10^3/uL (3.5-10.8)
[2019-01-02 11:37] LABS: ALT 32 U/L (7-52); AST 26 U/L (13-39); Albumin 4.4 g/dL (3.2-5.2); Albumin/Globulin Ratio 1.2 (1-3); Alkaline Phosphatase 129 U/L (34-104); Anion Gap 12 mmol/L (2-11); BUN/Creatinine Ratio 18.3 (8-20); Blood Urea Nitrogen 13 mg/dL (6-24); C Reactive Protein 21.93 mg/L (<8.01); CO2 Carbon Dioxide 25 mmol/L (22-32); Calcium 9.7 mg/dL (8.6-10.3); Chloride 97 mmol/L (101-111); Creatine Kinase 95 U/L (10-223); EGFR African American 109.2 (>60); EGFR Non-African American 90.3 (>60); Globulin 3.8 g/dL (2-4); Glucose 77 mg/dL (70-100); Potassium 3.7 mmol/L (3.5-5.0); Sodium 134 mmol/L (135-145); Total Protein 8.2 g/dL (6.4-8.9)
[2019-01-02 11:40] LABS: CKMB ng/mL 1.2 ng/mL (0.6-6.3)
[2019-01-02 11:42] LABS: HCG Pregnancy < 0.60 mIU/mL
[2019-01-02] MEDS ORDERED: Iodixanol* (CONTRAST) 320 MG/ML 100 ML SDV IV ONE (11:42)
[2019-01-02] MEDS ORDERED: Albuterol HFA INHALER* 8 gm MDI INH ONE (13:49)
[2019-01-02 14:08] VITALS: BP 143/85
== END 2019-01-02 14:23 | disposition home or self-care (01) ==
LOC: ED 10:02
DX: R06.00 Dyspnea, unspecified (principal); R05 Cough; R07.89 Other chest pain; M50.30 Other cervical disc degeneration, unspecified cervical region; M51.34 Other intervertebral disc degeneration, thoracic region
CPT/HCPCS: 36415; 70491; 71046; 80053; 82550; 82553; 83605; 83880; 84484; 84702; 85025; 85379; 86140; 87040; 93005; 99283; A9270-GY; Q9967

== ENCOUNTER 2019-09-22 07:28 | Emergency (ER) | payer BC ==
--- NOTE | 2019-09-22 07:46 | ED ---
HPI Chest Pain - HPI Summary HPI Summary: Patient is a 44 y/o F presenting to the ED for a chief complaint of right anterior chest pain that began the night of 09/21/19. Patient rates the chest pain as a 3/10 in severity. She describes the chest pain as being pleuritic. Patient states she had similar chest pain in the past with 2 pleural effusions. Patient states that she has had cold symptoms for the last 2 weeks. Patient admits chills one week ago that has since resolved. She denies fever. She has positive sick contact with her son who had similar cold symptoms. No aggravating or alleviating factors are noted. Patient notes she was seen by her continuous improvement specialist who prescribed her steroids and changed her inhaler. On 09/21/19, patient's symptoms persisted, so her PCP prescribed azithromycin, which she was unable to fill because her pharmacy was closed. PMHx is significant for asthma and sleep apnea, but she denies blood clots, HLD, HTN, or cardiac problems. In December 2018, she had a cardiac workup with a cardiac stress test with unremarkable findings. At that time, she was diagnosed with asthma. FMHx of blood clots is denied. - History of Current Complaint Chief Complaint: EDChestPainROMI Time Seen by Provider: 09/22/19 07:29 Hx Obtained From: Patient Onset/Duration: Still Present Timing: Constant Initial Severity: Mild Current Severity: Mild Pain Intensity: 3 Pain Scale Used: 0-10 Numeric Chest Pain Location: Right Anterior Chest Pain Radiates: No Character: Other: - Pleuritic Aggravating Factor(s): Nothing Alleviating Factor(s): Nothing Associated Signs and Symptoms: Positive: Chest Pain - Right anterior, Chills. Negative: Fever - Allergy/Home Medications Allergies/Adverse Reactions: Allergies Allergy/AdvReac Type Severity Reaction Status Date / Time fat emulsions Allergy See Comment Verified 09/22/19 07:35 [From Intralipid] Home Medications: Home Medications Albuterol HFA INHALER* [Ventolin HFA Inhaler*] 2 puff INH Q4H PRN 01/24/19 [ History Confirmed 09/22/19] Mometasone/Formoter 100/5 MDI* [Dulera 100/5 MDI*] 1 puff INH BID 09/22/19 [ History Confirmed 09/22/19] Montelukast Sodium TAB* [Singulair TAB*] 10 mg PO DAILY 09/22/19 [History Confirmed 09/22/19] predniSONE 10 mg TAB [Deltasone 10 MG TAB*] 20 mg PO DAILY 09/22/19 [History Confirmed 09/22/19] PMH/Surg Hx/FS Hx/Imm Hx Previously Healthy: Yes Endocrine/Hematology History: Denies: Hx Diabetes, Hx Anemia Cardiovascular History: Denies: Hx Angina, Hx Congestive Heart Failure, Hx Coronary Artery Disease, Hx Hypercholesterolemia, Hx Hypertension, Other Cardiovascular Problems/ Disorders Respiratory History: Reports: Hx Asthma, Hx Pleural Effusion Denies: Hx Chronic Obstructive Pulmonary Disease (COPD) GI History: Reports: Hx Gall Bladder Disease - mitchel 2009 Denies: Hx Jaundice History: Reports: Hx Kidney Stones - long time ago Denies: Hx Chronic Renal Failure, Hx Renal Disease Sensory History: Reports: Hx Contacts or Glasses - glasses Denies: Hx Legally Blind, Hx Deafness, Hx Hearing Aid Opthamlomology History: Reports: Hx Contacts or Glasses - glasses Denies: Hx Legally Blind EENT History: Denies: Hx Deafness - Cancer History Cancer Type, Location and Year: none - Surgical History Surgical History: Yes Surgery Procedure, Year, and Place: [facility]OMY-[facility] [place], myomectomy December 2013 Hx Anesthesia Reactions: No Infectious Disease History: No Infectious Disease History: Denies: Hx Clostridium Difficile, Hx Hepatitis, Hx Human Immunodeficiency Virus (HIV), Hx of Known/Suspected MRSA, Hx Shingles, Hx Tuberculosis, History Other Infectious Disease, Traveled Outside the [place] in Last 30 Days - Family History Known Family History: Positive: Hypertension, Diabetes, Other - CAD, prostate CA , no hx clotting disorder - Social History Occupation: Employed Full-time Lives: With Family Alcohol Use: None Hx Substance Use: No Substance Use Type: Reports: None Hx Tobacco Use: No Smoking Status (MU): Never Smoked Tobacco Review of Systems Positive: Chills. Negative: Fever Positive: Chest Pain - Right anterior All Other Systems Reviewed And Are Negative: Yes Physical Exam - Summary Physical Exam Summary: Constitutional: Well-developed, Well-nourished, Alert. (-) Distressed Skin: Warm, Dry HENT: Normocephalic; Atraumatic. Hoarse voice. Eyes: Conjunctiva normal Neck: Musculoskeletal ROM normal neck. (-) JVD, (-) Stridor, (-) Nuchal rigidity Cardio: Rhythm regular, rate normal, Heart sounds normal; Intact distal pulses; Radial pulses are 2+ and symmetric. (-) Murmur Pulmonary/Chest wall: Effort normal. (-) Respiratory distress, (-) Wheezes, (-) Rales Abd: Soft, (-) tenderness, (-) Distension, (-) Guarding, (-) Rebound Musculoskeletal: (-) Edema Lymph: (-) Cervical adenopathy Neuro: Alert, Oriented x3 Psych: Mood and affect Normal Triage Information Reviewed: Yes Vital Signs On Initial Exam: Initial Vitals Temp Pulse Resp BP Pulse Ox 97.4 F 72 18 156/88 100 09/22/19 07:29 09/22/19 07:29 09/22/19 07:29 09/22/19 07:29 09/22/19 07:29 Vital Signs Reviewed: Yes Procedures - Sedation Patient Received Moderate/Deep Sedation with Procedure: No Diagnostics - Vital Signs Vital Signs Temp Pulse Resp BP Pulse Ox 09/22/19 07:29 97.4 F 72 18 156/88 100 - Laboratory Result Diagrams: 09/22/19 07:45 09/22/19 07:45 Lab Statement: Any lab studies that have been ordered have been reviewed, and results considered in the medical decision making process. - Radiology Chest X-ray Radiology Interpretation Completed By: Radiologist Summary of Radiographic Findings: Chest X-ray IMPRESSION: NO ACTIVE CARDIOPULMONARY DISEASE. Reviewed by Dr. Rowland. - EKG 07:31 Cardiac Rate: NL - 79 BPM EKG Rhythm: Sinus Rhythm ST Segment: Normal Ectopy: None Summary of EKG Findings: An EKG at 07:31 reveals normal sinus rhythm with 79 BPM , nml axis, nml intervals. No STEMI. No acute changes. ED physician has reviewed and interpreted this EKG. Re-Evaluation - Re-Evaluation First Eval Re-Evaluation Time: 08:45 Change: Improved - updated patient on neg results, XR. Feeling better. Chest Pain Course/Dx - Course Course Of Treatment: 44 y/o F w h asthma p/w R sided pleuritic CP. - VSS NAD. PE Lungs CTAB, easy WOB on RA. CXR w/o PTX, consolidation or effusion. Labs w/o leukocytosis. Trop negative, heart score 1, Low risk. Perc negative. - patiet already on steroids, has azithromycin at pharmacy. Will f/u with pulmonology. - Diagnoses Provider Diagnoses: Pleuritic chest pain Discharge ED - Sign-Out/Discharge Documenting (check all that apply): Patient Departure - Discharge - Discharge Plan Condition: Stable Disposition: HOME Patient Education Materials: Pleurisy (ED) Referrals: Britni Rajan MD [Primary Care Provider] - Additional Instructions: You were seen in the emergency department for pleuritic chest pain. Your EKG was normal. Your labs did not show any evidence of acute infection. Your chest x -ray did not show any pleural effusions. Please follow up with your primary care doctor in next 2-3 days and return to emergency department for worsening chest pain, trouble breathing, passing out, or concerning symptoms. It was a pleasure taking care of you today. - Billing Disposition and Condition Condition: STABLE Disposition: Home - Attestation Statements Document Initiated by Sofia: Yes Documenting Scribe: Sharon Jacobs Provider For Whom Sofia is Documenting (Include Credential): Marita Rowland MD Scribe Attestation: I, Sharon Jacobs, scribed for Marita Rowland MD on 09/22/19 at 0905. Scribe Documentation Reviewed: Yes Provider Attestation: The documentation as recorded by the Sharon donohue accurately reflects the service I personally performed and the decisions made by me, Marita Rowland MD Status of Scribe Document: Viewed
[2019-09-22 08:05] LABS: INR 0.92 (0.82-1.09)
[2019-09-22 08:10] LABS: Hematocrit 34 % (35-47); Hemoglobin 11.3 g/dL (12.0-16.0); Mean Corpuscular HGB Conc 33 g/dL (31-36); Mean Corpuscular Hemoglobin 24 pg (27-31); Mean Corpuscular Volume 72 fL (80-97); Mean Platelet Volume 6.9 fL (7.4-10.4); Platelet Count 389 10^3/uL (150-450); Red Blood Count 4.76 10^6 /uL (3.70-4.87); Red Cell Distribution Width 17 % (10-15); White Blood Count 10.2 10^3/uL (3.5-10.8)
[2019-09-22 08:13] LABS: Albumin 3.8 g/dL (3.2-5.2); Albumin/Globulin Ratio 1.1 (1-3); BUN/Creatinine Ratio 17.8 (8-20); EGFR African American 105.3 (>60); Globulin 3.4 g/dL (2-4); Potassium 3.6 mmol/L (3.5-5.0); Total Bilirubin 0.2 mg/dL (0.2-1.0); Total Protein 7.2 g/dL (6.4-8.9)
--- OUTSIDE RECORDS SUMMARY | 2019-09-22 08:29 | XMS REPORT | Continuity of Care Document ---
:1975 External Reference #:[id number] Author Name Roseann Agarwal MD (transmitted by agent of provider Tonia Mitchell) Address [address], [address] [place] [address] Care Team Providers Name Role Phone Opal Santiago MD - Internal Medicine Care Team Information [employer] Employee Britni Rajan MD - Internal Care Team Information [employer] Medicine [facility] - Sleep Disorder Care Team Information [employer] Employee Diagnostic Problems Active Problems Provider Date Impaired glucose tolerance Britni Rajan M.D. Onset: 11/21/2015 Sleep apnea Britni Rajan M.D. Onset: 04/11/2019 Note: moderate Asthma Britni Rajan M.D. Onset: 04/11/2019 Social History Type Date Description Comments Sex Unknown ETOH Use Denies alcohol use Tobacco Use Start: Unknown Patient has never smoked Recreational Drug Use Never Used Drugs Smoking Status Reviewed: 09/13/19 Patient has never smoked Exercise Type/Frequency Exercises regularly yoga and elliptical and weights Allergies, Adverse Reactions, Alerts Active Allergies Reaction Severity Comments Date Intralipid 06/20/2019 Inactive Allergies NKDA 09/29/2012 Medications Active Medications SIG Qnty Indications Ordering Provider Date Prednisone 30mg daily for 1 42tabs J45.901 Roseann Agarwal, 09/13/2019 10mg week, 20mg daily MD Tablets for 1 week, 10 mg daily for 1 week Montelukast Sodium 1 by mouth every 90tabs J45.901 Roseann Agarwal, 2019 day MD 10mg Tablets Symbicort inhale 1 puff 1units Roseann Any, 07/19/2019 twice daily; rinse 80-4.5mcg/Act mouth after use Aerosol has not started yet still on Dulera (will replace Dulera) Proair HFA 2 puffs every 4 to 25.5gm J45.909 Hawa 04/06/2019 6 hours as needed LIAM Fraire 108(90Base) mcg/Act Aerosol Albuterol Sulfate 1 unit nebl every 150ml Roseann Agarwal, 03/31/2019 6 hours as needed (2.5mg/3ML) 0.083% Nebulizer Epipen 2-Andrew Use as instructed 2units R06.02 Roseann Agarwal, 02/01/2019 0.3mg/0.3ML Solution Auto-Inject Dulera 1 puff twice a day 26.4gm Roseann Agarwal, 100-5mcg/Act MD Aerosol History Medications Prednisone 3 tab daily for 26tabs Hawa Fraire, 08/17/2019 - 10mg Tablets 4 days, then 2 [employer] 09/10/2019 tab daily for 4 days, then 1 tab daily for 4 days, then 1/2 tab daily for 4 days Prednisone 3 tabs for 4 20units Roseann Agarwal MD 05/03/2019 - 10mg (48) days, 2 tabs 05/18/2019 TBPK for 4 days Immunizations CPT Code Status Date Vaccine Lot # [id number] Given 04/17/2015 Influenza Virus Vaccine, Quadrivalent, Split, [id number] Preservative Free [id number] Given 04/28/2014 Influenza Virus Vaccine, Quadrivalent, Split, Preservative Free 62509 Given 04/08/2013 Hepatitis A Vaccine Adult Dosage [id number] 63133 Given 03/02/2013 Hepatitis B Vaccine Adult Dosage 11482 Given 03/02/2013 Hepatitis B Vaccine Adult Dosage [id number] 73797 Given 10/15/2012 Hepatitis B Vaccine Adult Dosage [id number] 00273 Given 10/15/2012 Hepatitis A Vaccine Adult Dosage [id number] Vital Signs Date Vital Result Comment 09/13/2019 3:02pm Height 67 inches 5'7" Weight 289.00 lb Heart Rate 97 /min BP Systolic Sitting 130 mmHg BP Diastolic Sitting 60 mmHg Body Temperature 99.5 F O2 % BldC Oximetry 97 % BMI (Body Mass Index) 45.3 kg/m2 06/20/2019 11:15am Height 67 inches 5'7" Weight 296.00 lb Heart Rate 65 /min BP Systolic 118 mmHg BP Diastolic 78 mmHg O2 % BldC Oximetry 99 % BMI (Body Mass Index) 46.4 kg/m2 Results Test Acquired Date Facility Test Result H/L Range Note Lipid Profile 06/17/2019 [facility] Triglycerides 98 mg/dL 1 (Trig/Chol/HDL) [address] [place] [address] [phone] Cholesterol 157 mg/dL 2 HDL Cholesterol 44.4 mg/dL 3 LDL Cholesterol 93 mg/dL 4 Comp Metabolic 06/17/2019 [facility] Sodium 138 mmol/L Normal 135-145 Panel [address] [place] [address] [phone] Potassium 4.3 mmol/L Normal 3.5-5.0 Chloride 103 mmol/L Normal 101-111 Co2 Carbon Dioxide 26 mmol/L Normal 22-32 Anion Gap 9 mmol/L Normal 2-11 Glucose 83 mg/dL Normal 70-100 Blood Urea Nitrogen 12 mg/dL Normal 6-24 Creatinine 0.72 mg/dL Normal 0.51-0.95 BUN/Creatinine Ratio 16.7 Normal 8-20 Calcium 10.1 mg/dL Normal 8.6-10.3 Total Protein 7.7 g/dL Normal 6.4-8.9 Albumin 4.4 g/dL Normal 3.2-5.2 Globulin 3.3 g/dL Normal 2-4 Albumin/Globulin Ratio 1.3 Normal 1-3 Total Bilirubin 0.50 mg/dL Normal 0.2-1.0 Alkaline Phosphatase 112 U/L High 34-104 Alt 26 U/L Normal 7-52 Ast 23 U/L Normal 13-39 Egfr Non- 88.4 >60 Egfr 107.0 >60 5 Laboratory test 06/17/2019 [facility] Hemoglobin A1c 6.0 % High 4.0-5.6 6 finding 101 (Glyco HGB) [place] [address] [phone] TSH (Thyroid Stim Horm) 5.17 mcIU/mL Normal 0.34-5.60 7 Vitamin D Total 25(Oh) 18.6 ng/mL Low 20-50 8 CBC Auto 06/17/2019 [facility] White Blood 7.4 10^3/uL Normal 3.5-10.[address] [place] [address] [phone] Red Blood Count 5.07 10^6/uL High 3.70-4.87 Hemoglobin 12.4 g/dL Normal 12.0-16.0 Hematocrit 37 % Normal 35-47 Mean Corpuscular Volume 73 fL Low 80-97 9 Mean Corpuscular Hemoglobin 25 pg Low 27-31 Mean Corpuscular HGB Conc 34 g/dL Normal 31-36 Red Cell Distribution Width 17 % High 10-15 Platelet Count 348 10^3/uL Normal 150-450 Mean Platelet Volume 7.3 fL Low 7.4-10.4 Abs Neutrophils 4.9 10^3/uL Normal 1.5-7.7 Abs Lymphocytes 2.0 10^3/uL Normal 1.0-4.8 Abs Monocytes 0.4 10^3/uL Normal 0-0.8 Abs Eosinophils 0.1 10^3/uL Normal 0-0.6 Abs Basophils 0.1 10^3/uL Normal 0-0.2 Abs Nucleated RBC 0.0 10^3/uL Granulocyte % 65.8 % Lymphocyte % 26.7 % Monocyte % 5.0 % Eosinophil % 1.8 % Basophil % 0.7 % Nucleated Red Blood Cells % 0.0 Laboratory test 06/17/2019 [facility] Vitamin B12 639 pg/mL Normal 180-914 [address] [place] [address] [phone] Laboratory test 04/21/2019 [facility] Cytology SEE RESULT [address] [place] [address] [phone] Desirable: <150 Borderline High: 150-199 High: 200-499 Very High: >500 2 Desirable: <200 Borderline High: 200-239 High: >239 3 Low: <40 Desirable: 40-60 High: >60 4 Desirable: <100 Near Optimal: 100-129 Borderline High: 130-159 High: 160-189 Very High: >189 5 Because ethnic data is not always readily available, this report includes an eGFR for both -Americans and non- Americans. The National Kidney Disease Education Program (NKDEP) does not endorse the use of the MDRD equation for patients that are not between the ages of 18 and 70, are , have extremes of body size, muscle mass, or nutritional status, or are non- or non-. According to the National Kidney Foundation, irrespective of diagnosis, the stage of the disease is based on the level of kidney function: Stage Description GFR(mL/min/1.73 m(2)) 1 Kidney damage with normal or decreased GFR 90 2 Kidney damage with mild decrease in GFR 60-89 3 Moderate decrease in GFR 30-59 4 Severe decrease in GFR 15-29 5 Kidney failure <15 (or dialysis) 6 Therapeutic target for the treatment of diabetes mellitus patients is <7% HBA1C, and in selective patients <6.0%. Please refer to [place] [employer] diabetic care guidelines for further information. 7 FASTING 8 Total 25-Hydroxyvitamin D2 and D3 (25-OH-VitD) <10 ng/mL (severe deficiency) 10-19 ng/mL (mild to moderate deficiency) 20-50 ng/mL (optimum levels) 51-80 ng/mL (increased risk of hypercalciuria) >80 ng/mL (toxicity possible) 9 Consistent with Previous Results Reported on 12/31/18 10 Normal Range 180 to 914 Indeterminate Range 145 to 180 Deficient Range <145 11 SEE RESULT BELOW Name: NOAH OLSON : [address]: Wade Self MD Acct: [id number] Unit: [id number] AGE: 44 Location: THYROID Re04/21/19 SEX: F Status: REG REF SPEC: [id number] BRYAN: 04/21/19-[address]: Wade Self MD REQ: [id number] RECD: 04/21/19 STATUS: SOBEIDA BUITRAGO DR: Britni Funes MD _ ORDERED: FNA-IMG GUID BX, CYTO ADEQ-1ST P FINAL DIAGNOSIS Thyroid, right mid, Ultrasound guided, fine needle aspiration: Benign thyroid nodule, chronic lymphocytic thyroiditis ([place] class II). The specimen demonstrates modest watery colloid, moderate largely cohesive follicular epithelium arranged in uniform sheets, medium sized follicles and only occasional small groups demonstrating variable Hurthle cell metaplasia. No atypical Hurthle cells are seen. Lymphoid tangles, lymphocytes and plasma cells are seen in the background. No features of papillary carcinoma are seen. In this clinical setting the risk of malignancy is less than 3%. Clinical management of this thyroid nodule should be based on clinical and radiographic features as well as the above findings. SPECIMEN(S) RECEIVED THYROID RIGHT - US GUIDED FINE NEEDLE ASPIRATION CLINICAL HISTORY Right mid nodule- 1.3x 0.5x 0.7cm CONTINUED ON NEXT PAGE DEPARTMENT OF PATHOLOGY, [address] [place] [address] Magdy Beasley M.D. Director [facility] # [id number] IMMEDIATE INTERPRETATION Pass 1- adequate GROSS DESCRIPTION 2- alcohol fixed slide(s) 1 - passes Signed by and Reported on: Magdy Beasley MD 1144 END OF REPORT DEPARTMENT OF PATHOLOGY, [facility] [employer] [place], [place] [address] Magdy Beasley M.D. Director [facility] # [id number] Procedures Description No Information Available Medical Devices Description No Information Available Encounters Type Date Location Provider Dx Diagnosis Office Visit 09/13/2019 Pulmonology And Roseann Agarwal, J45.901 Unspecified asthma 3:30p [facility] with (acute) [employer] Education [employer] exacerbation G47.33 Obstructive sleep apnea (adult) (pediatric) Office Visit 06/20/2019 11:00a [facility] Internal Britni Z00.00 [facility] - Yanique Rajan M.D. general adult medical exam w/o abnormal findings R73.03 Prediabetes E55.9 Vitamin D deficiency, unspecified E61.1 Iron deficiency E07.9 Disorder of thyroid, unspecified Office Visit 05/18/2019 Pulmonology And Roseann J45.909 Unspecified asthma , 7:15a [facility] MD Any uncomplicated [employer] Education [employer] G47.33 Obstructive sleep apnea (adult) (pediatric) Office Visit 04/06/2019 Pulmonology And Hawa G47.33 Obstructive sleep 1:30p [facility] LIAM Fraire apnea (adult) Continuing Education Instructor (pediatric) R06.02 Shortness of breath J45.909 Unspecified asthma, uncomplicated Assessments Date Code Description Provider 09/13/2019 J45.901 Unspecified asthma with (acute) Roseann Agarwal MD exacerbation 09/13/2019 G47.33 Obstructive sleep apnea (adult) (pediatric) Roseann Agarwal MD 06/20/2019 Z00.00 Encounter for general adult medical Britni Rajan M.D. examination without abnormal findings 06/20/2019 R73.03 Prediabetes Britni Rajan M.D. 06/20/2019 E55.9 Vitamin D deficiency, unspecified Britni Rajan M.D. 06/20/2019 E61.1 Iron deficiency Britni Rajan M.D. 06/20/2019 E07.9 Disorder of thyroid, unspecified Britni Rajan M.D. 05/18/2019 J45.909 Unspecified asthma, uncomplicated Roseann Agarwal MD 05/18/2019 G47.33 Obstructive sleep apnea (adult) (pediatric) Roseann Agarwal MD 04/06/2019 G47.33 Obstructive sleep apnea (adult) (pediatric) Hawa Fraire NP 04/06/2019 R06.02 Shortness of breath Hawa Fraire NP 04/06/2019 J45.909 Unspecified asthma, uncomplicated Hawa Fraire NP Plan of Treatment Future Appointment(s):12/07/2019 7:30 am - Roseann [facility]wal [facility]06/21/2020 1:20 pm - Britni Rajan M.D. at [facility] Roseann Agarwal MDJ45.901 Unspecified asthma with (acute) exacerbationNew Medication:Prednisone 10 mg - 30mg daily for 1 week, 20mg daily for 1 week, 10 mg daily for 1 weekMontelukast Sodium 10 mg - 1 by mouth every dayNew Labs:Immunoglobulins Serum Quant, Ordered: Immunoglobulin E (Ige), Ordered: 09/13/19C Reactive Protein, Ordered: Follow up:3 thoovdR27.33 Obstructive sleep apnea (adult) (pediatric) Functional Status Description No Information Available Mental Status Description No Information Available Referrals Description No Information Available
[2019-09-22 08:44] LABS: Microcytosis 2+
[2019-09-22 08:45] LABS: ABS Eosinophils 0.2 10^3/ul (0-0.6); ABS Lymphocytes 4.1 10^3/ul (1.0-4.8); ABS Monocytes 0.6 10^3/ul (0-0.8); ABS Neutrophils 5.3 10^3/ul (1.5-7.7); Eosinophil % 1.9 %; Lymphocyte % 40.2 %; Nucleated Red Blood Cells % 0.1
[2019-09-22 09:00] VITALS: BP 116/86
== END 2019-09-22 08:59 | disposition home or self-care (01) ==
LOC: ED 07:28
DX: R07.81 Pleurodynia (principal); J45.909 Unspecified asthma, uncomplicated; Z90.49 Acquired absence of other specified parts of digestive tract; Z87.442 Personal history of urinary calculi; Z79.899 Other long term (current) drug therapy
CPT/HCPCS: 36415; 71046; 80053; 84484; 85025; 85610; 93005; 99283